=== PATIENT | male | born 1985 | race Asian ===

== ENCOUNTER 2017-02-21 12:59 | Emergency (ER) | payer BC ==
[2017-02-21 13:19] VITALS: BP 133/87
--- NOTE | 2017-02-21 13:29 | UC ---
Complaint Male HPI - HPI Summary HPI Summary: stomachache, joint pain, weakness, stinky smelling urine. Mostly noticable in the morning and on/off during the day. He was on vacation visitng family and went to see a Doctor because he had time off and he had blood drawn about a month ago in [place]. He has high ferritin, high triglycerides and low vitamin D. The reports are available on his phone. He is here for treatment or referral to a different medical center. He lives in [place]. He does not have a primary provider. He states that he tried making appts but he could never make it to the appts because of work travel. He wants referral to PCP. Not taking Vit D at this time and has had intermittent right ankle pain and still with "stinky urine" [ End ] - History of Current Complaint Chief Complaint: UCGeneralIllness Stated Complaint: DIGESTION STOMACH URINARY COMPLAINT Time Seen by Provider: 02/21/17 13:04 Hx Obtained From: Patient Timing: Constant Severity Initially: Mild Location: None - Risk Factors Testicular Torsion: Negative - Allergies/Home Medications Allergies/Adverse Reactions: Allergies Allergy/AdvReac Type Severity Reaction Status Date / Time No Known Allergies Allergy Verified 02/21/17 13:20 PMH/Surg Hx/FS Hx/Imm Hx Previously Healthy: Yes Endocrine History: Dyslipidemia - Surgical History Surgical History: Yes Surgery Procedure, Year, and Place: lasik surgery 2007 - Family History Known Family History: Positive: None, Diabetes - dad - Social History Occupation: Employed Full-time Alcohol Use: Occasionally Substance Use Type: None Smoking Status (MU): Light Every Day Tobacco Smoker Type: Cigarettes Amount Used/How Often: "once in two months" - Immunization History Most Recent Influenza Vaccination: Fall 2014 Most Recent Tetanus Shot: Unknown Hx Tetanus, Diphtheria Vaccination: No Review of Systems Constitutional: Negative Skin: Negative Eyes: Negative ENT: Negative Respiratory: Negative Cardiovascular: Negative Gastrointestinal: Negative Genitourinary: Negative, Other - odor Motor: Negative Neurovascular: Negative Musculoskeletal: Arthralgia Neurological: Negative Psychological: Negative All Other Systems Reviewed And Are Negative: Yes Physical Exam Triage Information Reviewed: Yes Appearance: Well-Appearing, No Pain Distress, Well-Nourished Vital Signs: Initial Vital Signs Temp 98.7 F 02/21/17 13:12 Pulse 79 02/21/17 13:12 Resp 14 02/21/17 13:12 BP 133/87 02/21/17 13:12 Pulse Ox 98 02/21/17 13:12 Eye Exam: Normal ENT Exam: Normal Dental Exam: Normal Neck exam: Normal Neck: Positive: 1 Respiratory Exam: Normal Cardiovascular Exam: Normal Musculoskeletal Exam: Normal Neurological Exam: Normal Psychological Exam: Normal Skin Exam: Normal Complaint Male Course/Dx - Course Course Of Treatment: Once again urged patient to establish care with PCP. We advised for elevated TG to start fish oil For Vit D and can give 4 weeks at this time to bridge to PCP and given info for [facility] to call. He states he went once to PCP in [place] on [address] and unhappy with care. Recheck U/A at this time since blood was there previous I advised f/u as he could have bladder cancer and he is aware. He will go to Uro and set up appt with PCP - Differential Dx/Diagnosis Provider Diagnoses: Vitamin D def / Hypertriglyceridemia/hematuria Discharge - Discharge Plan Condition: Good Disposition: HOME Prescriptions: Vitamin D CAP* [Drisdol CAP*] 50,000 units PO SEE INSTRUCTIONS #4 cap Patient Education Materials: Vitamin D Deficiency (ED), Hematuria (ED) Referrals: No Primary Care Phys,NOPCP [Primary Care Provider] - 3 Days (Please call [facility] for establishing care with a PCP) Lukas Bañuelos MD [Medical Doctor] - (follow up for recurrent hematuria / blood in urine ) Additional Instructions: Please also start Fish oil or Krill oil for your elevated triglycerides. Please also follow up for your elevated ferritin with a primary care physician
== END 2017-02-21 14:01 | disposition home or self-care (01) ==
LOC: UCCORT 12:59
DX: E55.9 Vitamin D deficiency, unspecified (principal); E78.1 Pure hyperglyceridemia; R31.9 Hematuria, unspecified; E78.5 Hyperlipidemia, unspecified; F17.210 Nicotine dependence, cigarettes, uncomplicated
CPT/HCPCS: 81003; 87086; 99212; G0463